=== PATIENT | male | born 1945 | race Caucasian/White ===

== ENCOUNTER 2023-03-01 18:48 | Inpatient (IN) | payer MEDICARE ==
[~2023-03-01] VITALS: Ht 177.8 cm; Wt 111.1 kg
[2023-03-01] MEDS ORDERED: TDAP [DIPH/PERTUSSIS/TET] 0.5 ML VIAL IM ONE ×2 (19:51→20:00)
[2023-03-01 20:31] LABS: BASOPHILS % (AUTO) 0.3 % (0.0-2.0); EOSINOPHILS % (AUTO) 0.1 % (0.0-6.0); HEMATOCRIT 44 % (39-51); HEMOGLOBIN 14.4 g/dL (13.5-17.5); LYMPHOCYTES # (AUTO) 0.7 K/uL (0.8-4.8); LYMPHOCYTES % (AUTO) 5.5 % (20.0-44.0); MEAN CORPUSCULAR HGB CONC 33 g/dl (31.0-36.0); MEAN CORPUSCULAR VOLUME 91 fL (80-96); MONOCYTES # (AUTO) 0.7 K/uL (0.1-1.30); NEUTROPHILS # (AUTO) 10.8 K/uL (1.8-8.9); NEUTROPHILS % (AUTO) 88.1 % (43.0-81.0); PLATELET COUNT (AUTO) 209 K/uL (150-450); RED BLOOD CELL COUNT(AUTO) 4.83 MIL/uL (4.5-6.0); WHITE BLOOD COUNT (AUTO) 12.2 K/uL (4.3-11.0)
[2023-03-01 20:38] LABS: CALCIUM, SERUM 9.1 mg/dL (8.5-10.1); CREATININE 1.2 mg/dL (0.6-1.3); POTASSIUM 3.7 mmol/L (3.5-5.1)
[2023-03-01 20:45] LABS: BILIRUBIN,URINE NEGATIVE (NEGATIVE); COLOR,URINE YELLOW (YELLOW); LEUKOCYTE ESTERASE ,URINE 2+ (NEGATIVE); NITRITE, URINE POSITIVE (NEGATIVE); PROTEIN,URINE 2+ mg/dl (NEGATIVE); UGLUCOSE NEGATIVE (NEGATIVE); UROBILINOGEN,URINE 0.2 EU/dL (0.2)
[2023-03-01] MEDS ORDERED: ASPIRIN 325 MG TABLET PO ONE (21:00)
[2023-03-01 21:07] LABS: BACTERIA,URINE 1+ /HPF (None Seen)
[2023-03-01 21:08] LABS: MUCUS,URINE Moderate /LPF (None Seen); WBC,URINE 51-80 /HPF (0-3)
[2023-03-01] MEDS ORDERED: CEFTRIAXONE 1GM BAG (ER ONLY) 50 ML IV ONE (21:30)
[2023-03-01] MEDS ORDERED: ONDANSETRON HCL/PF 4 MG/2 ML VIAL IVP PRN (22:30)
[2023-03-01] MEDS ORDERED: hydrALAZINE HCL IV 20 MG VIAL IV PRN (22:30)
[2023-03-01] MEDS ORDERED: FUROSEMIDE 40 MG/4 ML VIAL IV STA (22:54)
[2023-03-01 23:15] VITALS: BP 171/79
[2023-03-01 23:30] LABS: CHOLESTEROL 135 mg/dL (<200); HDL CHOLESTEROL 58 mg/dL (40-60); LDL 70 mg/dL (0-99); TRIGLYCERIDES 40 mg/dL (30-150)
[2023-03-02] VITALS: BP 169/76
[2023-03-02 01:24] LABS: BILIRUBIN,DIRECT 0.2 mg/dL (0.0-0.2)
[2023-03-02 04:00] VITALS: BP 177/79
[2023-03-02] MEDS ORDERED: hydrALAZINE HCL IV 20 MG VIAL IV ONE (04:30)
[2023-03-02] MEDS: ACETAMINOPHEN 325 MG TABLET PO PRN (05:09)
[2023-03-02 05:44] LABS: BASOPHILS % (AUTO) 0.4 % (0.0-2.0); EOSINOPHILS % (AUTO) 0.1 % (0.0-6.0); HEMATOCRIT 42 % (39-51); LYMPHOCYTES # (AUTO) 0.8 K/uL (0.8-4.8); LYMPHOCYTES % (AUTO) 7.6 % (20.0-44.0); MEAN CORPUSCULAR HGB CONC 34 g/dl (31.0-36.0); MEAN CORPUSCULAR VOLUME 90 fL (80-96); MONOCYTES # (AUTO) 1.3 K/uL (0.1-1.30); MONOCYTES % (AUTO) 11.8 % (2.0-12.0); NEUTROPHILS # (AUTO) 8.6 K/uL (1.8-8.9); NEUTROPHILS % (AUTO) 80.1 % (43.0-81.0); PLATELET COUNT (AUTO) 196 K/uL (150-450); RED BLOOD CELL COUNT(AUTO) 4.63 MIL/uL (4.5-6.0); WHITE BLOOD COUNT (AUTO) 10.7 K/uL (4.3-11.0)
[2023-03-02 06:00] LABS: ALANINE AMINOTRANSFERASE 15 U/L (12-78); ALBUMIN 2.8 g/dL (3.4-5.0); ALKALINE PHOSPHATASE 63 U/L (46-116); ASPARTATE AMINOTRANSFERASE 13 U/L (15-37); BILIRUBIN,TOTAL 1.1 mg/dL (0.2-1.0); CALCIUM, SERUM 8.6 mg/dL (8.5-10.1); CARBON DIOXIDE 26 mmol/L (21-32); CHLORIDE 101 mmol/L (98-107); GLUCOSE 145 mg/dL (74-106); MAGNESIUM 1.9 mg/dL (1.8-2.4); POTASSIUM 3.2 mmol/L (3.5-5.1); SODIUM SERUM 135 mmol/L (136-145); TOTAL PROTEIN, SERUM 7.4 g/dL (6.4-8.2); UREA NITROGEN, BLOOD 16 mg/dL (7-18)
[2023-03-02 08:00] VITALS: BP 140/73
[2023-03-02] MEDS: PROSOURCE / PROSTAT (PYXIS) 30 ML UDC GT SCH ×2 (09:16→17:19)
[2023-03-02] MEDS: POTASSIUM PHOSPHATE MM 7.5 MMOL in IV NS 0.9% 100 ML IV SCH ×2 (09:17→12:53)
[2023-03-02] MEDS: HEPARIN SODIUM, PORCINE 5000 UNITS/1 ML VIAL SQ SCH ×2 (09:25→21:40)
[2023-03-02 09:47] LABS: THYROID STIMULATING HORMONE 0.603 uIU/mL (0.358-3.74)
[2023-03-02] MEDS ORDERED: CLONIDINE HCL 0.1 MG TABLET PO PRN (10:00)
[2023-03-02] MEDS: Z GUARD REMEDY 4 OZ OINT TP SCH (11:30)
[2023-03-02] MEDS ORDERED: Z GUARD REMEDY 4 OZ OINT TP PRN (11:30)
[2023-03-02 12:00] VITALS: BP 148/67
[2023-03-02] MEDS: METOPROLOL TARTRATE 50 MG TABLET PO SCH ×3 (12:57→23:16)
[2023-03-02 16:00] VITALS: BP 161/79
[2023-03-02] MEDS: CLOTRIMAZOLE 1% 15 GM TUBE TP SCH (17:19)
[2023-03-02 20:00] VITALS: BP 134/63
[2023-03-02] MEDS: CEFTRIAXONE 1 G in IV D5W 50 ML IV SCH (21:38)
[2023-03-03] VITALS: BP 153/86
[2023-03-03] MEDS: ACETAMINOPHEN 325 MG TABLET PO PRN (00:15)
[2023-03-03 04:00] VITALS: BP 137/76
[2023-03-03] MEDS: METOPROLOL TARTRATE 50 MG TABLET PO SCH ×3 (05:19→19:05)
[2023-03-03 07:12] LABS: BASOPHILS % (AUTO) 0.3 % (0.0-2.0); EOSINOPHILS % (AUTO) 0.3 % (0.0-6.0); HEMATOCRIT 41 % (39-51); HEMOGLOBIN 13.4 g/dL (13.5-17.5); LYMPHOCYTES # (AUTO) 2.1 K/uL (0.8-4.8); LYMPHOCYTES % (AUTO) 21.5 % (20.0-44.0); MEAN CORPUSCULAR HGB CONC 33 g/dl (31.0-36.0); MEAN CORPUSCULAR VOLUME 91 fL (80-96); MONOCYTES % (AUTO) 20.4 % (2.0-12.0); NEUTROPHILS # (AUTO) 5.6 K/uL (1.8-8.9); NEUTROPHILS % (AUTO) 57.5 % (43.0-81.0); PLATELET COUNT (AUTO) 187 K/uL (150-450); RED BLOOD CELL COUNT(AUTO) 4.47 MIL/uL (4.5-6.0); WHITE BLOOD COUNT (AUTO) 9.7 K/uL (4.3-11.0)
[2023-03-03 08:00] VITALS: BP 154/82
[2023-03-03 08:18] LABS: ALBUMIN 2.6 g/dL (3.4-5.0); BILIRUBIN,TOTAL 0.9 mg/dL (0.2-1.0); CALCIUM, SERUM 8.6 mg/dL (8.5-10.1); CREATININE 1.2 mg/dL (0.6-1.3); MAGNESIUM 2.2 mg/dL (1.8-2.4); PHOSPHORUS 3.9 mg/dL (2.5-4.9); POTASSIUM 3.5 mmol/L (3.5-5.1); TOTAL PROTEIN, SERUM 6.9 g/dL (6.4-8.2)
[2023-03-03] MEDS: HEPARIN SODIUM, PORCINE 5000 UNITS/1 ML VIAL SQ SCH ×2 (08:55→21:20)
[2023-03-03] MEDS: PROSOURCE / PROSTAT (PYXIS) 30 ML UDC GT SCH ×2 (08:55→19:06)
[2023-03-03] MEDS: CEFTRIAXONE 1 G in IV D5W 50 ML IV SCH (08:55)
[2023-03-03] MEDS: CLOTRIMAZOLE 1% 15 GM TUBE TP SCH ×2 (09:12→17:00)
[2023-03-03] MEDS: Z GUARD REMEDY 4 OZ OINT TP SCH (09:12)
[2023-03-03] MEDS: ATORVASTATIN 10 MG TABLET PO SCH (10:11)
[2023-03-03] MEDS: ASPIRIN 81 MG TAB.CHEW PO SCH (10:11)
[2023-03-03 12:00] VITALS: BP 141/79
[2023-03-03] MEDS: METOPROLOL TARTRATE INJ 5 MG/5 ML AMPUL IVP PRN ×10 (12:20→13:05)
[2023-03-03] MEDS ORDERED: NITROGLYCERIN 4.9 GM SPRAY ONE (12:32)
[2023-03-03] MEDS ORDERED: IOHEXOL-350 100 ML VIAL IV ONE (12:32)
[2023-03-03] MEDS ORDERED: METOPROLOL TARTRATE INJ 5 MG/5 ML AMPUL ONE ×3 (12:32→12:47)
[2023-03-03] MEDS ORDERED: CT SWABBABLE VALVE TRANS SET 1 EA INFUS.SET MC ONE (12:33)
[2023-03-03] MEDS ORDERED: IV NS 0.9% 250 ML IV ONE (12:33)
[2023-03-03] MEDS ORDERED: NITROGLYCERIN 0.4 MG/TAB BOTTLE SL ONE (13:00)
[2023-03-03 13:07] LABS: *SPE A/G RATIO 0.8 (0.7-1.7); *SPE ALPHA-1-GLOBULIN 0.3 g/dL (0.0-0.4); *SPE ALPHA-2-GLOBULIN 0.7 g/dL (0.4-1.0); *SPE BETA GLOBULIN 1.1 g/dL (0.7-1.3); *SPE M-SPIKE Not Observed g/dL (Not Observed)
[2023-03-03 13:36] LABS: BASOPHILS % (MANUAL) 0 % (0.0-2.0); EOSINOPHILS % (MANUAL) 0 % (0-4); LYMPHOCYTES % (MANUAL) 18 % (16-48); MONOCYTES % (MANUAL) 21 % (0-11.0); NEUTROPHILS % (MANUAL) 61 (42-76)
[2023-03-03 16:00] VITALS: BP 147/71
[2023-03-03 20:00] VITALS: BP 154/70
[2023-03-04] VITALS (7 sets, daily range): BP systolic 125–170; BP diastolic 72–89
[2023-03-04] MEDS: METOPROLOL TARTRATE 50 MG TABLET PO SCH ×5 (00:32→23:31)
[2023-03-04 05:56] LABS: BASOPHILS % (AUTO) 0.5 % (0.0-2.0); EOSINOPHILS % (AUTO) 0.9 % (0.0-6.0); HEMATOCRIT 40 % (39-51); HEMOGLOBIN 13.6 g/dL (13.5-17.5); LYMPHOCYTES # (AUTO) 1.7 K/uL (0.8-4.8); MEAN CORPUSCULAR HGB CONC 34 g/dl (31.0-36.0); MEAN CORPUSCULAR VOLUME 89 fL (80-96); MONOCYTES # (AUTO) 1.6 K/uL (0.1-1.30); MONOCYTES % (AUTO) 18.3 % (2.0-12.0); NEUTROPHILS # (AUTO) 5.5 K/uL (1.8-8.9); NEUTROPHILS % (AUTO) 61.3 % (43.0-81.0); PLATELET COUNT (AUTO) 199 K/uL (150-450); RED BLOOD CELL COUNT(AUTO) 4.52 MIL/uL (4.5-6.0)
[2023-03-04 06:19] LABS: CALCIUM, SERUM 8.1 mg/dL (8.5-10.1); CARBON DIOXIDE 27 mmol/L (21-32); CHLORIDE 98 mmol/L (98-107); GLUCOSE 123 mg/dL (74-106); MAGNESIUM 2.1 mg/dL (1.8-2.4); PHOSPHORUS 2.8 mg/dL (2.5-4.9); POTASSIUM 3.2 mmol/L (3.5-5.1); SODIUM SERUM 134 mmol/L (136-145); UREA NITROGEN, BLOOD 17 mg/dL (7-18)
[2023-03-04] MEDS: ATORVASTATIN 10 MG TABLET PO SCH (08:41)
[2023-03-04] MEDS: ASPIRIN 81 MG TAB.CHEW PO SCH (08:41)
[2023-03-04] MEDS: PROSOURCE / PROSTAT (PYXIS) 30 ML UDC GT SCH ×2 (08:41→17:08)
[2023-03-04] MEDS: Z GUARD REMEDY 4 OZ OINT TP SCH (08:42)
[2023-03-04] MEDS: HEPARIN SODIUM, PORCINE 5000 UNITS/1 ML VIAL SQ SCH ×2 (08:42→21:27)
[2023-03-04] MEDS: CLOTRIMAZOLE 1% 15 GM TUBE TP SCH ×2 (08:42→17:08)
[2023-03-04] MEDS: CEFTRIAXONE 1 G in IV D5W 50 ML IV SCH (09:00)
[2023-03-04] MEDS ORDERED: POTASSIUM CHLORIDE 20 MEQ POWDER PACKET GT ONE (10:00)
[2023-03-04 15:01] LABS: EOSINOPHILS % (MANUAL) 1 % (0-4); LYMPHOCYTES % (MANUAL) 15 % (16-48); MONOCYTES % (MANUAL) 17 % (0-11.0); NEUTROPHILS % (MANUAL) 67 (42-76)
[2023-03-04] MEDS ORDERED: IV NS 0.9% 0 ML ONE (15:13)
[2023-03-04] MEDS ORDERED: IV SET PRIMARY PUMP SET 1 EA INFUS.SET MC ONE (15:13)
[2023-03-04] MEDS ORDERED: LIDOCAINE 1% INJ 50 ML MDV IJ ONE (15:14)
[2023-03-04] MEDS ORDERED: IODIXANOL 0 ML IV ONE (15:14)
[2023-03-04] MEDS ORDERED: NTG 25 MG/D5W 250 ML BTL 25 MG/250 ML BTL IV ONE (15:20)
[2023-03-05] VITALS: BP 159/97
[2023-03-05 04:00] VITALS: BP 150/82
[2023-03-05 05:12] VITALS: BP 150/82
[2023-03-05] MEDS: METOPROLOL TARTRATE 50 MG TABLET PO SCH (05:12)
[2023-03-05 06:54] LABS: CALCIUM, SERUM 8.7 mg/dL (8.5-10.1); CARBON DIOXIDE 26 mmol/L (21-32); CHLORIDE 104 mmol/L (98-107); GLUCOSE 97 mg/dL (74-106); MAGNESIUM 2.4 mg/dL (1.8-2.4); PHOSPHORUS 3.3 mg/dL (2.5-4.9); POTASSIUM 3.5 mmol/L (3.5-5.1); SODIUM SERUM 138 mmol/L (136-145); UREA NITROGEN, BLOOD 19 mg/dL (7-18)
[2023-03-05 07:08] LABS: BASOPHILS % (AUTO) 0.7 % (0.0-2.0); EOSINOPHILS % (AUTO) 2.7 % (0.0-6.0); HEMATOCRIT 41 % (39-51); HEMOGLOBIN 13.6 g/dL (13.5-17.5); LYMPHOCYTES # (AUTO) 1.6 K/uL (0.8-4.8); LYMPHOCYTES % (AUTO) 22.6 % (20.0-44.0); MEAN CORPUSCULAR HGB CONC 33 g/dl (31.0-36.0); MEAN CORPUSCULAR VOLUME 90 fL (80-96); NEUTROPHILS # (AUTO) 4.2 K/uL (1.8-8.9); PLATELET COUNT (AUTO) 209 K/uL (150-450); WHITE BLOOD COUNT (AUTO) 7.1 K/uL (4.3-11.0)
[2023-03-05] MEDS: ASPIRIN 81 MG TAB.CHEW PO SCH (08:54)
[2023-03-05] MEDS: ATORVASTATIN 10 MG TABLET PO SCH (08:55)
[2023-03-05] MEDS: CEFTRIAXONE 1 G in IV D5W 50 ML IV SCH (08:55)
[2023-03-05] MEDS: HEPARIN SODIUM, PORCINE 5000 UNITS/1 ML VIAL SQ SCH (08:59)
[2023-03-05] MEDS: PROSOURCE / PROSTAT (PYXIS) 30 ML UDC GT SCH (09:24)
[2023-03-05] MEDS: Z GUARD REMEDY 4 OZ OINT TP SCH (09:24)
[2023-03-05] MEDS: CLOTRIMAZOLE 1% 15 GM TUBE TP SCH (09:24)
== END 2023-03-05 12:00 | disposition left against medical advice (07) | DRG 871 ==
LOC: ER 18:50 → TELE1 22:16
PROVIDERS: ADMIT Internal Medicine; ATTEND Internal Medicine
DX: A41.9 Sepsis, unspecified organism (principal); G93.41 Metabolic encephalopathy; I21.A1 Myocardial infarction type 2; N39.0 Urinary tract infection, site not specified; D68.59 Other primary thrombophilia; I50.9 Heart failure, unspecified; E66.01 Morbid (severe) obesity due to excess calories; Z68.35 Body mass index [BMI] 35.0-35.9, adult; I25.10 Atherosclerotic heart disease of native coronary artery without angina pectoris; G47.33 Obstructive sleep apnea (adult) (pediatric); E87.6 Hypokalemia; K57.30 Diverticulosis of large intestine without perforation or abscess without bleeding; K76.89 Other specified diseases of liver; N20.0 Calculus of kidney; N21.0 Calculus in bladder; N40.0 Benign prostatic hyperplasia without lower urinary tract symptoms; Z87.891 Personal history of nicotine dependence; Z99.3 Dependence on wheelchair; Z91.81 History of falling; Z20.822 Contact with and (suspected) exposure to COVID-19
CPT/HCPCS: 36415; 71045-TC; 73630-TC; 75574; 80048-TC; 80053-TC; 80061-TC; 81001; 82247-TC; 82248-TC; 83605-TC; 83735-TC; 83880; 84100-TC; 84155; 84165; 84439-TC; 84443-TC; 84484-TC; 85025-TC; 85610-TC; 87040-TC; 87081-TC; 87086-TC; 90715; 93307-TC; 97110-TC; 97112-TC; 97116-TC; 97530-TC; A4223; A4349; G0378; J0360; J0696; J1644; J1940; J3490; J7030; J7040; J7050; J7060; Q9967